=== PATIENT | female | born 1995 | race Caucasian/White ===

== ENCOUNTER 2018-01-19 11:45 | Emergency (ER) | payer OTHER ==
[~2018-01-19] VITALS: Ht 165.1 cm; Wt 54.4 kg
[~2018-01-19 11:45] MED LIST: MEDROLDOSEPACK PO
[2018-01-19 13:30] LABS: HEMATOCRIT 44.7 % (37.0-47.0); HEMOGLOBIN 15.1 gm/dL (12.0-15.0); MCH 29.6 pg (26.0-34.0); MCHC 33.8 g/dL (28.0-37.0); MCV 87.6 fL (80.0-100.0); PLATELET COUNT 494 thou/uL (150-400); RDW 13.4 % (10.5-14.5); WBC 19.5 thou/uL (4.0-11.0)
[2018-01-19 13:51] LABS: CREATININE 0.8 mg/dL (0.6-1.0)
[2018-01-19 13:53] LABS: POTASSIUM 2.9 mmol/L (3.5-5.1)
[2018-01-19 13:54] LABS: ALBUMIN 3.6 g/dL (3.4-5.0); TOTAL BILIRUBIN 0.7 mg/dL (<0.1-1.0); TOTAL PROTEIN 7.1 g/dL (6.4-8.2)
[2018-01-19] MEDS ORDERED: K-DUR 20 MEQ T20 MEQ PO (14:48)
[2018-01-19] MEDS ORDERED: BENADRYL25 MG PO (14:49)
[2018-01-19] MEDS ORDERED: PREDNISONE 20 M20 M1 PO (14:49)
[2018-01-19] MEDS ORDERED: PEPCID20 MG PO (14:49)
[2018-01-19] MEDS ORDERED: EPIPEN0.3 MG/0.1 IM (14:54)
[2018-01-19 15:20] LABS: ABSOLUTE NEUTROPHILS 10.3 thou/uL (1.4-8.2); PLATELET ESTIMATE INCREASED
[2018-01-19 15:40] VITALS: BP 106/74
== END 2018-01-19 15:42 | disposition home or self-care (01) ==
LOC: ER 11:45
PROVIDERS: Physician Assistant
DX: T78.2XXA Anaphylactic shock, unspecified, initial encounter (principal); T78.40XA Allergy, unspecified, initial encounter; E87.6 Hypokalemia; J45.909 Unspecified asthma, uncomplicated